=== PATIENT | female | born 1945 | race Caucasian/White ===

== ENCOUNTER 2024-07-16 17:17 | Inpatient (IN) | payer MEDICARE ==
[2024-07-16 22:40] VITALS: BMI 33.3
[2024-07-16] MEDS ORDERED: Acetaminophen 325 MG TAB ONE (23:12)
[2024-07-16] MEDS ORDERED: Atorvastatin Calcium 40 MG TAB ONE (23:12)
[2024-07-16] MEDS ORDERED: Clopidogrel Bisulfate 75 MG TAB ONE (23:12)
[2024-07-16] MEDS ORDERED: Aspirin Chewable 81 MG TAB ONE (23:12)
[2024-07-16] MEDS ORDERED: Famotidine 20 MG TAB ONE (23:12)
[2024-07-17 03:25] LABS: #Basophils 0.07 10x3/uL (0.0-0.2); %Basophils 0.8 % (0.0-1.0); %Eosinophils 5.4 % (0.0-10.0); %Lymphocytes 33.1 % (21.0-51.0); %Monocytes 8.2 % (0.0-10.0); %Neutrophils 52.3 % (42.0-75.0); Hematocrit 37.7 % (36.0-47.0); Hemoglobin 12.2 g/dL (12.0-16.0); Mean Corpuscular HGB CONC 32.4 g/dL (32.0-36.0); Mean Corpuscular Hemoglobin 30.1 pg (27.0-31.0); Mean Corpuscular Volume 93.1 fL (78.0-98.0); Mean Platelet Volume 10.3 fL (7.4-10.4); Platelet Count 271 10x3/uL (130-400); RBC Distribution Width 13.1 % (11.5-14.5); Red Blood Cell (RBC) Count 4.05 mill/uL (4.20-5.40)
[2024-07-17 04:15] LABS: ALT (SGPT) 14 U/L (8-55); AST (SGOT) 14 U/L (5-34); Albumin 3.5 g/dL (3.4-4.8); Alkaline Phosphatase 92 U/L (40-110); Anion Gap 11 mmol/L (10-20); BUN (Urea Nitrogen) 18 mg/dL (9.8-20.1); Bilirubin, Total 0.6 mg/dL (0.2-1.2); Calc. Creatinine Clearance 77 mL/min (70-130); Calcium 9.4 mg/dL (7.8-10.44); Carbon Dioxide 25 mmol/L (23-31); Cardiac Risk 3.8 (Less than 4.5); Chloride 108 mmol/L (98-107); Cholesterol 180 mg/dl (< 200 Desired); Estimated GFR 68; Globulin 2.7 g/dL (2.4-3.5); Glucose 102 mg/dL (83-110); HDL Cholesterol 48 mg/dL (>60 Neg Risk); LDL Cholesterol, Calculated 111 mg/dL; Potassium 4.4 mmol/L (3.5-5.1); Protein, Total 6.2 g/dL (5.8-8.1); Sodium 140 mmol/L (136-145); Triglycerides 103 mg/dL (Less than 150)
[2024-07-17] MEDS ORDERED: hydrALAZINE 20 MG/ML VIAL SLOW IVP PRN (04:44)
[2024-07-17] MEDS ORDERED: Ondansetron PF 4 MG/2 ML Vial SLOW IVP PRN (04:45)
[2024-07-17] MEDS ORDERED: Acetaminophen 650 MG Suppository PR PRN (04:45)
[2024-07-17] MEDS ORDERED: Ondansetron ODT 4 MG TAB PO PRN (04:45)
[2024-07-17] MEDS ORDERED: Lorazepam 1 MG TAB PO SCH (05:30)
[2024-07-17] MEDS: Famotidine/PF 20 mg/2ml Vial SLOW IVP SCH (09:45)
[2024-07-17] MEDS: Famotidine 20 MG TAB PO SCH (09:45)
[2024-07-17] MEDS: Lorazepam 2 MG/ML VIAL ONE (09:45)
[2024-07-17] MEDS: Clopidogrel Bisulfate 75 MG TAB PO SCH (09:45)
[2024-07-17] MEDS: Aspirin 81 mg Enteric Coated Tablet PO SCH (09:45)
[2024-07-17] MEDS: Clopidogrel Bisulfate 75 MG TAB ONE (20:00)
[2024-07-17] MEDS: Famotidine 20 MG TAB ONE (20:00)
[2024-07-17] MEDS: Acetaminophen 325 MG TAB ONE (20:00)
[2024-07-17] MEDS: Aspirin 81 mg Enteric Coated Tablet ONE (20:00)
[2024-07-17] MEDS: Atorvastatin Calcium 40 MG TAB ONE (20:00)
[2024-07-17] MEDS: Atorvastatin Calcium 40 MG TAB PO SCH (21:35)
[2024-07-18] MEDS: Acetaminophen 325 MG TAB PO PRN (08:51)
[2024-07-18] MEDS: Fioricet 325/50/40 mg Tablet PO PRN (11:09)
[2024-07-18] MEDS: FLU (Fluad Triv) TS24-25 (65UP)/MF59C/PF 45 MCG/0.5 ML Syringe IM ONE (11:59)
[2024-07-18] MEDS: Lisinopril 20 MG TAB PO SCH (12:48)
[2024-07-18] MEDS ORDERED: Lorazepam 0.5 MG TAB PO PRN (17:02)
[2024-07-19] MEDS: Lisinopril 20 MG TAB PO SCH (08:52)
[2024-07-19] MEDS: PARoxetine 20 MG TAB PO SCH (08:53)
[2024-07-20 08:20] LABS: #Basophils 0.09 10x3/uL (0.0-0.2); %Basophils 1.1 % (0.0-1.0); %Eosinophils 6.3 % (0.0-10.0); %Lymphocytes 31.7 % (21.0-51.0); %Monocytes 8.7 % (0.0-10.0); %Neutrophils 51.8 % (42.0-75.0); Hematocrit 36.7 % (36.0-47.0); Hemoglobin 11.8 g/dL (12.0-16.0); Mean Corpuscular HGB CONC 32.2 g/dL (32.0-36.0); Mean Corpuscular Volume 93.4 fL (78.0-98.0); Mean Platelet Volume 10.3 fL (7.4-10.4); Platelet Count 267 10x3/uL (130-400); RBC Distribution Width 12.9 % (11.5-14.5); Red Blood Cell (RBC) Count 3.93 mill/uL (4.20-5.40)
[2024-07-20 08:41] LABS: ALT (SGPT) 14 U/L (8-55); AST (SGOT) 12 U/L (5-34); Albumin 3.5 g/dL (3.4-4.8); Alkaline Phosphatase 99 U/L (40-110); Anion Gap 8 mmol/L (10-20); BUN (Urea Nitrogen) 21 mg/dL (9.8-20.1); Bilirubin, Total 0.7 mg/dL (0.2-1.2); Calc. Creatinine Clearance 78 mL/min (70-130); Calcium 9.3 mg/dL (7.8-10.44); Carbon Dioxide 24 mmol/L (23-31); Chloride 108 mmol/L (98-107); Estimated GFR 69; Globulin 2.6 g/dL (2.4-3.5); Glucose 102 mg/dL (83-110); Potassium 4.3 mmol/L (3.5-5.1); Protein, Total 6.1 g/dL (5.8-8.1); Sodium 136 mmol/L (136-145)
[2024-07-22] MEDS ORDERED: Meclizine HCl 12.5 MG TAB PO PRN (08:40)
[2024-07-22] MEDS: Meclizine HCl 12.5 MG TAB PO SCH (10:17)
[2024-07-22 12:47] VITALS: BP 136/68; TEMP 98.1
== END 2024-07-22 15:41 | disposition home health service (06) | DRG 68 ==
LOC: 2SE 20:04 → INTOOBSV 20:04 → OBSVTOIN 07-18 11:24
PROVIDERS: ADMIT Internal Medicine; ATTEND Internal Medicine
PROC: 3E02340 Introduction of Influenza Vaccine into Muscle, Percutaneous Approach (ICD-10-PCS; 2024-07-17)
PROC: 4A00X4Z Measurement of Central Nervous Electrical Activity, External Approach (ICD-10-PCS; principal; 2024-07-20)
DX: I65.02 Occlusion and stenosis of left vertebral artery (principal); I67.4 Hypertensive encephalopathy; I16.0 Hypertensive urgency; H81.10 Benign paroxysmal vertigo, unspecified ear; I10 Essential (primary) hypertension; F03.90 Unspecified dementia, unspecified severity, without behavioral disturbance, psychotic disturbance, mood disturbance, and anxiety; F03.A0 Unspecified dementia, mild, without behavioral disturbance, psychotic disturbance, mood disturbance, and anxiety; E78.5 Hyperlipidemia, unspecified; Z91.148 Patient's other noncompliance with medication regimen for other reason; Z23 Encounter for immunization
CPT/HCPCS: 36415; 70551; 80053; 80061; 85025; 95816; 96374; 96375; G0378; J2060; J3490